=== PATIENT | male | born 1955 | race Caucasian/White ===

== ENCOUNTER 2017-09-02 16:08 | Emergency (ER) | payer MEDICAID ==
[2017-09-02] MEDS ORDERED: Albuterol/Ipratropium 3.0-0.5 MG/3 ML Neb Soln NEB ONE ×2 (16:28→18:44)
[2017-09-02 17:06] LABS: CHLORIDE,CL 95 mmol/L (101-111); SODIUM,NA 132 mmol/L (135-145)
--- NOTE | 2017-09-02 17:46 | CR ---
Clinical history: 61-year-old male with chest pain who was evaluated 26 August 2017 for "shortness of breath". Interpretation: No acute new cardiopulmonary abnormality and..... no change except for technique on today's upright AP portable chest film (compared to PA, lateral fi lms of 26 August 2017). Hypertrophic arthritic changes dorsal spine. Mild ectasia dorsal aorta. Normal cardiac silhouette without cephalization of vascular flow, signs of alveolar edema or dependen t pleural effusion. No new lung mass, hilar lymphadenopathy or focal lobar pneumonia. No atelectasis/collapse. No pneumothorax or free subdiaphragmatic air.
--- NOTE | 2017-09-02 18:08 | EDM.PDOC ---
Scribed by Suzy Red 09/02/17 1809 for Amara Ozuna NP <Amara Ozuna - Last Filed: 09/02/17 18:08> ED HPI GENERAL MEDICAL PROBLEM - General Chief Complaint: Chest Pain Stated Complaint: [id number] CHEST SOB NOT GETTING ANY BETTER Time Seen by Provider: 09/02/17 17:00 Source of Information: Reports: Patient, RN, RN Notes Reviewed History Limitations: Reports: No Limitations - History of Present Illness INITIAL COMMENTS - FREE TEXT/NARRATIVE: Patient presents to ER with complaint of cough, shortness of breath, and chest pain. This began 10 days or longer ago. He was seen at [facility] about 1 week ago. Steroids and antibiotics were given. He states he is not sure if he finished meds. He has a harsh cough. He is sleepy and tired. He has chest pains and shortness of breath. He has no fever, chills, nausea, vomiting or diarrhea. Onset: Gradual Duration: Getting Worse Location: Reports: Chest Quality: Reports: Ache Severity: Severe Improves with: Reports: None Worsens with: Reports: None Associated Symptoms: Reports: No Other Symptoms Chest Pain Score (Numeric/FACES): 6 - Related Data Allergies Allergy/AdvReac Type Severity Reaction Status Date / Time Vragmkn-Sjv-Bbc Reductase Allergy Burning Verified 07/04/16 10:04 Inhibitor Home Meds: Home Meds Valsartan/Hydrochlorothiazide [Valsartan-Hctz 160-25 mg Tab] 1 each PO DAILY [History] DULoxetine [Cymbalta] 60 mg PO DAILY 02/18/16 [History] Gabapentin [Neurontin] 600 mg PO TID 02/18/16 [History] LORazepam 0.5 mg PO DAILY 06/15/16 [History] Past Medical History HEENT History: Reports: Impaired Vision, Sinusitis Cardiovascular History: Reports: High Cholesterol, Hypertension Respiratory History: Reports: Sleep Apnea Gastrointestinal History: Reports: None Genitourinary History: Reports: Renal Disease Musculoskeletal History: Reports: Fracture Neurological History: Reports: None Psychiatric History: Reports: Anxiety, Depression Endocrine/Metabolic History: Reports: Obesity/BMI 30+ Hematologic History: Reports: None Immunologic History: Reports: None Oncologic (Cancer) History: Reports: None Dermatologic History: Reports: None - Infectious Disease History Infectious Disease History: Reports: None - Past Surgical History GI Surgical History: Reports: Hernia Repair/Other Social & Family History - Family History Family Medical History: Noncontributory - Tobacco Use Smoking Status *Q: Former Smoker Years of Tobacco use: 30 Packs/Tins Daily: 1 Used Tobacco, but Quit: Yes Month/Year Tobacco Last Used: June Second Hand Smoke Exposure: No - Caffeine Use Caffeine Use: Reports: Coffee - Recreational Drug Use Recreational Drug Use: No - Living Situation & Occupation Living situation: Reports: Alone Occupation: Employed ED ROS GENERAL - Review of Systems Review Of Systems: ROS reveals no pertinent complaints other than HPI. ED EXAM, GENERAL - Physical Exam Exam: See Below Exam Limited By: No Limitations Eye Exam: Bilateral Eye: Normal Inspection Ears: Normal External Exam, Normal Canal, Hearing Grossly Normal, Normal TMs Nose: Normal Inspection, Normal Mucosa, No Blood Throat/Mouth: Normal Inspection, Normal Lips, Normal Teeth, Normal Gums, Normal Oropharynx, Normal Voice, No Airway Compromise Head: Atraumatic, Normocephalic Neck: Normal Inspection, Supple, Non-Tender, Full Range of Motion Respiratory/Chest: Wheezing (and rales throughout) Cardiovascular: Normal Peripheral Pulses, Regular Rate, Rhythm, No Edema, No Gallop, No JVD, No Murmur, No Rub GI/Abdominal: Other (large) (Male) Exam: Deferred Rectal (Males) Exam: Deferred Back Exam: Normal Inspection, Full Range of Motion, NT Extremities: Normal Inspection, Normal Range of Motion, Non-Tender, Normal Capillary Refill, No Pedal Edema Neurological: Alert, Oriented, CN II-XII Intact, Normal Cognition, Normal Gait, Normal Reflexes, No Motor/Sensory Deficits Psychiatric: Depressed Mood Skin Exam: Warm, Dry, Intact, Normal Color, No Rash Lymphatic: No Adenopathy EKG INTERPRETATION EKG Date: 09/02/17 Time: 16:30 Rhythm: Other (sinusrhythm) Rate (Beats/Min): 84 [place]: Normal P-Wave: Present QRS: Normal ST-T: Normal QT: Normal Course - Vital Signs Last Recorded V/S: Last Vital Signs Temp 36.8 C 09/02/17 18:16 Pulse 87 09/02/17 18:16 Resp 20 09/02/17 18:16 BP 120/70 09/02/17 18:16 Pulse Ox 92 L 09/02/17 18:16 - Orders/Labs/Meds Orders: Active Orders 24 hr Category Date Time Status EKG Documentation Completion [RC] STAT Care 09/02/17 16:28 Active RT Aerosol Therapy [RC] ASDIRECTED Care 09/02/17 16:29 Active RT Aerosol Therapy [RC] ASDIRECTED Care 09/02/17 18:44 Ordered CULTURE BLOOD [BC] Stat Lab 09/02/17 17:22 Received CULTURE BLOOD [BC] Stat Lab 09/02/17 17:26 Received UA W/MICROSCOPIC [URIN] Stat Lab 09/02/17 18:03 Ordered Blood Culture x2 Reflex Set [OM.PC] Stat Oth 09/02/17 17:07 Ordered Labs: Laboratory Tests 09/02/17 09/02/17 09/02/17 Range/Units 16:40 16:40 16:40 WBC 14.5 H (5.0-10.0) 10^3/uL RBC 5.31 (4.6-6.2) 10^6/uL Hgb 16.7 (14.0-18.0) g/dL Hct 46.7 (40.0-54.0) % MCV 87.9 (80-100) fL MCH 31.5 (27.0-34.0) pg MCHC 35.8 H (33.0-35.0) g/dL Plt Count 270 (150-450) 10^3/uL Neut % (Auto) 54.7 (42.2-75.2) % Lymph % (Auto) 36.4 (20.5-50.1) % [place] % (Auto) 8.3 H (2-8) % Eos % (Auto) 0.3 L (1.0-3.0) % Baso % (Auto) 0.3 (0.0-1.0) % Add Manual Diff Yes Neutrophils % (Manual) 49 (42-75) % Band Neutrophils % 5 % Lymphocytes % (Manual) 38 (20-50) % Atypical Lymphs % 2 % Monocytes % (Manual) 5 (2-8) % Eosinophils % (Manual) 1 (1-3) % D-Dimer, Quantitative 185 (0-400) ng/mL Sodium 132 L (135-145) mmol/L Potassium 3.2 L (3.6-5.0) mmol/L Chloride 95 L (101-111) mmol/L Carbon Dioxide 26.0 (21.0-31.0) mmol/L Anion Gap 14.2 BUN 20 H (7-18) mg/dL Creatinine 1.0 (0.6-1.3) mg/dL Est Cr Clr Drug Dosing 65.77 mL/min Estimated GFR (MDRD) > 60 BUN/Creatinine Ratio 20.00 Glucose 112 H (74-105) mg/dL Lactic Acid (0.5-2.2) mmol/L Calcium 8.5 (8.4-10.2) mg/dl Total Bilirubin 0.7 (0.2-1.0) mg/dL AST 40 (10-42) IU/L ALT 49 (10-60) IU/L Alkaline Phosphatase 50 (42-121) IU/L Total Protein 8.0 (6.7-8.2) g/dl Albumin 3.8 (3.2-5.5) g/dl Globulin 4.2 Albumin/Globulin Ratio 0.90 Urine Color (YELLOW) Urine Appearance (CLEAR) Urine pH (5.0-9.0) Ur Specific [place] (1.005-1.030) Urine Protein (NEGATIVE) Urine Glucose (UA) (NEGATIVE) Urine Ketones (NEGATIVE) Urine Occult Blood (NEGATIVE) Urine Nitrite (NEGATIVE) Urine Bilirubin (NEGATIVE) Urine Urobilinogen (0.2-1.0) mg/dL Ur Leukocyte Esterase (NEGATIVE) Urine RBC /HPF Urine WBC (0-5/HPF) /HPF Ur Epithelial Cells /HPF Urine Bacteria (0-FEW/HPF) /HPF Urine Mucus /LPF 09/02/17 09/02/17 Range/Units 17:22 18:03 WBC (5.0-10.0) 10^3/uL RBC (4.6-6.2) 10^6/uL Hgb (14.0-18.0) g/dL Hct (40.0-54.0) % MCV (80-100) fL MCH (27.0-34.0) pg MCHC (33.0-35.0) g/dL Plt Count (150-450) 10^3/uL Neut % (Auto) (42.2-75.2) % Lymph % (Auto) (20.5-50.1) % [place] % (Auto) (2-8) % Eos % (Auto) (1.0-3.0) % Baso % (Auto) (0.0-1.0) % Add Manual Diff Neutrophils % (Manual) (42-75) % Band Neutrophils % % Lymphocytes % (Manual) (20-50) % Atypical Lymphs % % Monocytes % (Manual) (2-8) % Eosinophils % (Manual) (1-3) % D-Dimer, Quantitative (0-400) ng/mL Sodium (135-145) mmol/L Potassium (3.6-5.0) mmol/L Chloride (101-111) mmol/L Carbon Dioxide (21.0-31.0) mmol/L Anion Gap BUN (7-18) mg/dL Creatinine (0.6-1.3) mg/dL Est Cr Clr Drug Dosing mL/min Estimated GFR (MDRD) BUN/Creatinine Ratio Glucose (74-105) mg/dL Lactic Acid 1.6 (0.5-2.2) mmol/L Calcium (8.4-10.2) mg/dl Total Bilirubin (0.2-1.0) mg/dL AST (10-42) IU/L ALT (10-60) IU/L Alkaline Phosphatase (42-121) IU/L Total Protein (6.7-8.2) g/dl Albumin (3.2-5.5) g/dl Globulin Albumin/Globulin Ratio Urine Color Yellow (YELLOW) Urine Appearance Clear (CLEAR) Urine pH 5.5 (5.0-9.0) Ur Specific [place] 1.020 (1.005-1.030) Urine Protein Trace H (NEGATIVE) Urine Glucose (UA) Negative (NEGATIVE) Urine Ketones Negative (NEGATIVE) Urine Occult Blood Negative (NEGATIVE) Urine Nitrite Negative (NEGATIVE) Urine Bilirubin Negative (NEGATIVE) Urine Urobilinogen 0.2 (0.2-1.0) mg/dL Ur Leukocyte Esterase Trace H (NEGATIVE) Urine RBC 0-5 /HPF Urine WBC 5-10 H (0-5/HPF) /HPF Ur Epithelial Cells Few /HPF Urine Bacteria Few (0-FEW/HPF) /HPF Urine Mucus Moderate H /LPF Influenza: Negative. Meds: Medications Discontinued Medications Generic Name Dose Route Start Last Admin Trade Name Freq PRN Reason Stop Dose Admin Albuterol/Ipratropium 3 ml 04/02/18 16:28 09/02/17 16:37 Duoneb 3.0-0.5 Mg/3 Ml NEB 09/02/17 16:29 3 ml ONETIME ONE Administration Albuterol/Ipratropium 3 ml 09/02/17 18:44 Duoneb 3.0-0.5 Mg/3 Ml NEB 09/02/17 18:45 ONETIME ONE Guaifenesin/Codeine Phosphate 5 ml 09/02/17 18:40 Robitussin Ac PO 09/02/17 18:41 ONETIME ONE Levofloxacin 500 mg 09/02/17 18:40 Levaquin PO 09/02/17 18:41 ONETIME ONE Methylprednisolone Sodium Succinate 125 mg 09/02/17 18:40 Solu-Medrol IM 09/02/17 18:41 ONETIME ONE - Radiology Interpretation Free Text/Narrative:: Chest x-ray: No acute changes. See rad report. Departure - Departure Disposition: Home, Self-Care 01 Clinical Impression: Bronchitis, COPD exacerbation - Discharge Information Instructions: Acute Bronchitis, Adult, [id number]-[id number], Chronic Obstructive Pulmonary Disease, [id number] Forms: ED Department Discharge Care Plan Goals: The patient was advised of the examination, lab and x-ray results during the visit. The patient was given an injection of SoluMedrol (125 mg), an oral dose of Levaquin (500 mg) and an oral dose of Robitussin AC while in the ED. The patient was discharged with a script for Levaquin (500 mg) to take 1 by mouth daily for 7 days, Prednisone (20 mg) #10 to take 2 by mouth daily for 5 days and Robitussin AC #100 mL to take 5 mL by mouth every 6 hours as needed for cough. The patient should follow-up with his primary care provider by the end of the week for continued evaluation. If the patient has any additional symptoms or concerns, the patient should either return to the emergency department or follow-up with his primary care facility. - My Orders Last 24 Hours: My Active Orders 09/02/17 18:44 RT Aerosol Therapy [RC] ASDIRECTED - Assessment/Plan Last 24 Hours: My Active Orders 09/02/17 18:44 RT Aerosol Therapy [RC] ASDIRECTED <Gary Coyle - Last Filed: 09/02/17 19:00> Course - Re-Assessments/Exams Free Text/Narrative Re-Assessment/Exam: 09/02/17 18:48 Discussed the examination, lab and x-ray results with the patient. The patient would prefer to attempt home treatment vs. admission to the hospital. Departure - Departure Time of Disposition: 18:49 Condition: Fair I have read and agree with the documentation that has been completed regarding this visit. By signing this record, I attest that the documentation was completed in my physical presence and is an accurate record of the encounter.
[2017-09-02] MEDS ORDERED: Codeine/guaiFENesin 100-10 MG/5 ML Syrup 5 ML Cup PO ONE (18:40)
[2017-09-02] MEDS ORDERED: Levofloxacin 500 MG Tab PO ONE (18:40)
[2017-09-02] MEDS ORDERED: methylPREDNISolone Sodium Succinate 125 MG/2 ML SDV IM ONE (18:40)
[2017-09-02 19:31] VITALS: BP 121/84
--- NOTE | 2017-09-04 14:05 | EKG ---
09/02/2017- AKHIL HENSON - FINDINGS: EKG, per my reading, shows sinus rhythm at the rate of 84. [facility] /[id number]
== END 2017-09-02 19:21 | disposition home or self-care (01) ==
LOC: DL.ED 16:08
DX: J44.1 Chronic obstructive pulmonary disease with (acute) exacerbation (principal); E78.00 Pure hypercholesterolemia, unspecified; I10 Essential (primary) hypertension; Z88.8 Allergy status to other drugs, medicaments and biological substances; Z79.899 Other long term (current) drug therapy; Z87.891 Personal history of nicotine dependence
CPT/HCPCS: 36415; 71045; 80053; 81001; 83605; 85025; 85379; 87040; 87804; 93005; 94640; 96372; 99284; A9270; J2930

== ENCOUNTER 2019-06-15 10:55 | Emergency (ER) | payer MEDICARE, MEDICAID ==
[2019-06-15 10:10] VITALS: BP 142/83; PULSE 77
--- NOTE | 2019-06-15 10:55 | EDM.PDOC ---
ED HPI GENERAL MEDICAL PROBLEM - General Chief Complaint: Back Pain or Injury Stated Complaint: BACK PAIN Time Seen by Provider: 06/15/19 10:30 Source of Information: Reports: Patient History Limitations: Reports: No Limitations - History of Present Illness INITIAL COMMENTS - FREE TEXT/NARRATIVE: This 63 yo male patient reports to the ED with lower back and right hip pain. The patient reports he slipped last Saturday and had a near fall. The patient reports increased pain in his lower back and right hip since that time. The patient reports his symptoms have been getting worse throughout the weekend. The patient reports he has had chronic pain in that area and is supposed to be on Gabapentin and Oxycodone for similar symptoms, but is currently out of medications. Onset Date: 06/12/19 Duration: Constant, Getting Worse Location: Reports: Back (low back), Lower Extremity, Right Quality: Reports: Ache, Sharp, Stabbing Severity: Severe Improves with: Reports: None Worsens with: Reports: None Context: Reports: Other Associated Symptoms: Reports: No Other Symptoms Left Hip Pain Score (Numeric/FACES): 10 - Related Data Allergies Allergy/AdvReac Type Severity Reaction Status Date / Time Ozaovkn-Pfb-Jmw Reductase Allergy Burning Verified 06/21/18 19:56 Inhibitor Home Meds: Home Meds Valsartan/Hydrochlorothiazide [Valsartan-Hctz 160-25 mg Tab] 1 each PO DAILY [History] DULoxetine [Cymbalta] 60 mg PO DAILY 02/18/16 [History] Gabapentin [Neurontin] 600 mg PO TID 02/18/16 [History] LORazepam 0.5 mg PO DAILY 06/15/16 [History] Past Medical History HEENT History: Reports: Impaired Vision, Sinusitis Cardiovascular History: Reports: CAD, High Cholesterol, Hypertension, [place] Respiratory History: Reports: COPD, Sleep Apnea Gastrointestinal History: Reports: None Genitourinary History: Reports: Renal Disease Musculoskeletal History: Reports: Fracture Other Musculoskeletal History: LEFT lower arm; RIGHT thumb Neurological History: Reports: Other (See Below) Other Neuro History: neuropathy Psychiatric History: Reports: Anxiety, Depression Endocrine/Metabolic History: Reports: Obesity/BMI 30+ Hematologic History: Reports: None Immunologic History: Reports: None Oncologic (Cancer) History: Reports: None Dermatologic History: Reports: None - Infectious Disease History Infectious Disease History: Reports: None - Past Surgical History Head Surgeries/Procedures: Reports: None HEENT Surgical History: Reports: None Cardiovascular Surgical History: Reports: Other (See Below) Other Cardiovascular Surgeries/Procedures: Triple Bypass in March 24, 2018 GI Surgical History: Reports: Hernia Repair/Other Endocrine Surgical History: Reports: None Neurological Surgical History: Reports: None Musculoskeletal Surgical History: Reports: None Social & Family History - Family History Family Medical History: Noncontributory - Tobacco Use Smoking Status *Q: Former Smoker Used Tobacco, but Quit: Yes Month/Year Tobacco Last Used: 02/2018 - Caffeine Use Caffeine Use: Reports: Coffee - Recreational Drug Use Recreational Drug Use: No - Living Situation & Occupation Living situation: Reports: Alone Occupation: Employed ED ROS GENERAL - Review of Systems Review Of Systems: Comprehensive ROS is negative, except as noted in HPI. ED EXAM, GENERAL - Physical Exam Exam: See Below Exam Limited By: No Limitations General Appearance: Alert, WD/WN, Moderate Distress, Obese Eye Exam: Bilateral Eye: EOMI, Normal Inspection, PERRL Ears: Normal External Exam, Normal Canal, Hearing Grossly Normal, Normal TMs Nose: Normal Inspection, Normal Mucosa, No Blood Throat/Mouth: Normal Inspection, Normal Lips, Normal Teeth, Normal Gums, Normal Oropharynx, Normal Voice, No Airway Compromise Head: Atraumatic, Normocephalic Neck: Normal Inspection, Supple, Non-Tender, Full Range of Motion Respiratory/Chest: No Respiratory Distress, Lungs Clear, Normal Breath Sounds, No Accessory Muscle Use, Chest Non-Tender Cardiovascular: Normal Peripheral Pulses, Regular Rate, Rhythm, No Edema, No Gallop, No JVD, No Murmur, No Rub GI/Abdominal: Normal Bowel Sounds, Soft, Non-Tender, No Organomegaly, No Distention, No Abnormal Bruit, No Mass, Other (obese) (Male) Exam: Deferred Rectal (Males) Exam: Deferred Back Exam: Paraspinal Tenderness (lower back ), Vertebral Tenderness (lower back ) Extremities: No Pedal Edema, Normal Capillary Refill, Leg Pain (right hip) Neurological: Alert, Oriented, CN II-XII Intact, Normal Cognition, Normal Gait, Normal Reflexes, No Motor/Sensory Deficits Psychiatric: Normal Affect, Normal Mood Skin Exam: Warm, Dry, Intact, Normal Color, No Rash Lymphatic: No Adenopathy Course - Vital Signs Last Recorded V/S: Last Vital Signs Temp 36.3 C 06/15/19 10:05 Pulse 77 06/15/19 10:05 Resp 20 06/15/19 10:05 BP 142/83 H 06/15/19 10:05 Pulse Ox 95 06/15/19 10:05 - Orders/Labs/Meds Meds: Medications Discontinued Medications Generic Name Dose Route Start Last Admin Trade Name Namita PRN Reason Stop Dose Admin Ketorolac Tromethamine 60 mg 06/15/19 11:38 Toradol IM 06/15/19 11:39 ONETIME ONE Departure - Departure Time of Disposition: 11:42 Disposition: Home, Self-Care 01 Condition: Fair Clinical Impression: Acute exacerbation of chronic low back pain, Right hip pain - Discharge Information *PRESCRIPTION DRUG MONITORING PROGRAM REVIEWED*: Not Applicable *COPY OF PRESCRIPTION DRUG MONITORING REPORT IN PATIENT JAVIER: Not Applicable Instructions: Chronic Back Pain, [id number] Forms: ED Department Discharge Care Plan Goals: The patient was advised of the examination results during the visit. The patient was given an injection of Toradol (60 mg) while in the ED. The patient was discharged with scripts for Toradol (10 mg) #20 to take 1 by mouth every 6 hours and Flexeril (5 mg) #20 to take 1 by mouth at bedtime as needed. If the patient has any additional symptoms or concerns, the patient should either return to the emergency department or visit his primary care facility. Sepsis Event Note - Evaluation Sepsis Screening Result: No Definite Risk - Focused Exam Vital Signs: Vital Signs Temp Pulse Resp BP Pulse Ox 06/15/19 10:05 36.3 C 77 20 142/83 H 95 Date Exam was Performed: 06/15/19 Time Exam was Performed: 11:42
--- NOTE | 2019-06-15 11:15 | CR ---
EXAMINATION: Lumbar Spine 2 views SEX: Male AGE: 63 years CLINICAL HISTORY: 63-year-old male complaining of low back and right hip pain. INTERPRETATION: 1. Mild intervertebral disc space narrowing with endplate sclerosis and hypertrophic marginal spondylosis L3-for L4-5 levels suggesting chronic disc degeneration. 2. No pathologic skeletal lesion, lumbar fracture or spondylolisthesis. 3. Symmetric spacing normal-appearing SI and hip joints. No arthritic degenerative changes.
--- NOTE | 2019-06-15 11:18 | CR ---
EXAMINATION: AP pelvis/hips and AP/frog lateral views of the right hip SEX: Male AGE: 63 years CLINICAL HISTORY: 63-year-old male complaining of low back and right hip pain. Multilevel disc degeneration and arthritis of the lumbar spine (spondylosis). Radicular pain? INTERPRETATION: 1. Good bone mineral density for age and gender. 2. Symmetric spacing normal-appearing SI and hip joints. No reactive sclerosis or hypertrophic spur formation. 3. No pathologic skeletal lesion, pelvic or either hip fracture/dislocation. 4. Surgical clips soft tissues of the right thigh, medially. No other foreign bodies. 5. Arteriovascular calcifications in the groin. CONCLUSION: Negative exam.
[2019-06-15] MEDS ORDERED: Ketorolac 30 MG/ML SDV IM ONE (11:38)
== END 2019-06-15 12:18 | disposition home or self-care (01) ==
LOC: DL.ED 10:55
DX: M54.5 Low back pain (principal); M25.551 Pain in right hip; G89.29 Other chronic pain; I10 Essential (primary) hypertension; I25.2 Old myocardial infarction; E78.00 Pure hypercholesterolemia, unspecified; F41.9 Anxiety disorder, unspecified; F32.9 Major depressive disorder, single episode, unspecified; E66.9 Obesity, unspecified; Z68.43 Body mass index [BMI] 50.0-59.9, adult; Z87.891 Personal history of nicotine dependence; Z88.8 Allergy status to other drugs, medicaments and biological substances; Z79.899 Other long term (current) drug therapy
CPT/HCPCS: 72100; 73502; 96372; 99283; J1885

== ENCOUNTER 2023-09-18 14:14 | Emergency (ER) | payer MEDICARE, MEDICAID ==
[2023-09-18 15:59] LABS: EOSINOPHILS PERCENT AUTO 1.6 % (1.0-3.0); HEMATOCRIT 48.7 % (40.0-54.0); HEMOGLOBIN 16.9 g/dL (14.0-18.0); LYMPHOCYTES PERCENT AUTO 18.2 % (20.5-50.1); MEAN CORPUSCULAR HEMOGLOBIN 30.1 pg (27.0-34.0); MEAN CORPUSCULAR HGB CONC 34.7 g/dL (33.0-35.0); MEAN CORPUSCULAR VOLUME 86.7 fL (80-100); MONOCYTES PERCENT AUTO 7.9 % (2-8); NEUTROPHILS PERCENT AUTO 71.3 % (42.2-75.2); PLATELET COUNT,PLT 292 10^3/uL (150-450); RED BLOOD CELL COUNT 5.62 10^6/uL (4.6-6.2)
[2023-09-18 16:32] LABS: A/G RATIO 0.8; ALBUMIN 3.6 g/dL (3.4-5.0); BILIRUBIN TOTAL 0.9 mg/dL (0.2-1.0); BUN/CREATININE RATIO 7.8 (No establ ref range); CALCIUM 8.7 mg/dL (8.5-10.1); CREATININE 1.54 mg/dL (0.70-1.30); EST CRCL DRUG DOSING (CG) 35.92 mL/min; PROTEIN TOTAL,TP 7.9 g/dL (6.4-8.2)
[2023-09-18 17:45] VITALS: PULSE 88
[2023-09-18 18:05] VITALS: BP 168/100
== END 2023-09-18 18:25 | disposition home or self-care (01) ==
LOC: DL.ED 14:14
DX: I48.92 Unspecified atrial flutter (principal); I10 Essential (primary) hypertension; I25.10 Atherosclerotic heart disease of native coronary artery without angina pectoris; I25.2 Old myocardial infarction; J44.9 Chronic obstructive pulmonary disease, unspecified; E66.9 Obesity, unspecified; Z88.8 Allergy status to other drugs, medicaments and biological substances; Z91.048 Other nonmedicinal substance allergy status; Z79.899 Other long term (current) drug therapy; Z87.891 Personal history of nicotine dependence; Z68.43 Body mass index [BMI] 50.0-59.9, adult
CPT/HCPCS: 36415; 80053; 84484; 85025; 93005; 99285

== ENCOUNTER 2024-03-25 15:54 | Emergency (ER) | payer MEDICARE, MEDICAID ==
[2024-03-25] MEDS: Sodium Chloride 0.9% 1,000 ML IV ONE (16:05)
[2024-03-25] MEDS ORDERED: Norepinephrine Bit/D5W Premix 0 ML ONE (16:06)
[2024-03-25] MEDS ORDERED: Sodium Chloride 0.9% 10 ML Syringe FLUSH PRN (16:11)
[2024-03-25 16:18] LABS: BASOPHILS PERCENT AUTO 0.4 % (0.0-1.0); EOSINOPHILS PERCENT AUTO 0.9 % (1.0-3.0); HEMATOCRIT 47.8 % (40.0-54.0); HEMOGLOBIN 16.6 g/dL (14.0-18.0); LYMPHOCYTES PERCENT AUTO 19.2 % (20.5-50.1); MEAN CORPUSCULAR HEMOGLOBIN 30.6 pg (27.0-34.0); MEAN CORPUSCULAR HGB CONC 34.7 g/dL (33.0-35.0); MONOCYTES PERCENT AUTO 8.8 % (2-8); NEUTROPHILS PERCENT AUTO 70.7 % (42.2-75.2); PLATELET COUNT,PLT 248 10^3/uL (150-450); RED BLOOD CELL COUNT 5.43 10^6/uL (4.6-6.2); WHITE BLOOD CELL COUNT,WBC 9.1 10^3/uL (5.0-10.0)
[2024-03-25 16:34] LABS: A/G RATIO 1.1; ALANINE AMINOTRANSFERASE,ALT 25 U/L (16-63); ALBUMIN 3.5 g/dL (3.4-5.0); ALKALINE PHOSPHATASE 78 U/L (46-116); ANION GAP 14.9 mEq/L (7-13); ASPARTATE AMNIOTRANSFERASE,AST 18 U/L (15-37); BLOOD UREA NITROGEN,BUN 19 mg/dL (7-18); BUN/CREATININE RATIO 10.1 (No establ ref range); CALCIUM 8.8 mg/dL (8.5-10.1); CARBON DIOXIDE,CO2 23 mmol/L (21-32); CHLORIDE,CL 104 mmol/L (98-107); CREATININE 1.88 mg/dL (0.70-1.30); GLUCOSE RANDOM 133 mg/dL (70-99); MAGNESIUM 1.8 mg/dL (1.8-2.4); POTASSIUM,K 3.9 mmol/L (3.5-5.1); PROTEIN TOTAL,TP 6.8 g/dL (6.4-8.2); SODIUM,NA 138 mmol/L (136-145)
[2024-03-25 16:35] LABS: C-REACTIVE PROTEIN < 0.50 ng/dL (<=0.50); ESTIMATED GFR 38 mL/min (>=60); LACTIC ACID 1.5 mmol/L (0.4-2.0)
[2024-03-25 17:35] VITALS: BP 114/78; PULSE 62
== END 2024-03-25 18:00 | disposition home or self-care (01) ==
LOC: DL.ED 15:54
DX: E86.0 Dehydration (principal); I10 Essential (primary) hypertension; I25.10 Atherosclerotic heart disease of native coronary artery without angina pectoris; I25.2 Old myocardial infarction; E78.00 Pure hypercholesterolemia, unspecified; J44.9 Chronic obstructive pulmonary disease, unspecified; E66.9 Obesity, unspecified; Z79.899 Other long term (current) drug therapy; Z79.01 Long term (current) use of anticoagulants; Z88.8 Allergy status to other drugs, medicaments and biological substances; Z91.09 Other allergy status, other than to drugs and biological substances; Z68.43 Body mass index [BMI] 50.0-59.9, adult
CPT/HCPCS: 36415; 70450; 80053; 82947; 83605; 83735; 84484; 85025; 86140; 93005; 96360; 99285; J7030

== ENCOUNTER 2024-11-01 08:58 | Emergency (ER) | payer MEDICARE, OTHER, MEDICAID ==
[2024-11-01 09:34] LABS: O2 DELIVERY DEVICE ROOM AIR
[2024-11-01 09:36] LABS: BASE EXCESS VENOUS -0.5 mmol/l ((-2)-(+3)); BICARBONATE,VENOUS 26 mmol/l (19-25); O2 SATURATION VENOUS 85.5 % (60-80); PCO2 VENOUS 49 mmHg (41-51); PH,VENOUS 7.34 (7.31-7.41); PO2 VENOUS 64 mmHg (35-42)
[2024-11-01] MEDS: Albuterol/Ipratropium 3.0-0.5 MG/3 ML Neb Soln NEB ONE (09:51)
[2024-11-01] MEDS: predniSONE 20 MG Tab PO ONE (09:51)
[2024-11-01] MEDS: Albuterol/Ipratropium 3.0-0.5 MG/3 ML Neb Soln ONE (09:52)
[2024-11-01 09:58] LABS: ALBUMIN 3.2 g/dL (3.4-5.0); ANION GAP 11.6 mEq/L (7-13); BILIRUBIN TOTAL 1.1 mg/dL (0.2-1.0); CALCIUM 8.1 mg/dL (8.5-10.1); CREATININE 1.46 mg/dL (0.70-1.30); EST CRCL DRUG DOSING (CG) 38.86 mL/min; MAGNESIUM 1.9 mg/dL (1.8-2.4); POTASSIUM,K 3.6 mmol/L (3.5-5.1); PROTEIN TOTAL,TP 7.1 g/dL (6.4-8.2)
[2024-11-01 09:59] LABS: A/G RATIO 0.82; BASOPHILS PERCENT AUTO 0.4 % (0.0-1.0); EOSINOPHILS PERCENT AUTO 0.5 % (1.0-3.0); HEMATOCRIT 47.8 % (40.0-54.0); HEMOGLOBIN 16.3 g/dL (14.0-18.0); LACTIC ACID 1.4 mmol/L (0.4-2.0); LYMPHOCYTES PERCENT AUTO 10.1 % (20.5-50.1); MEAN CORPUSCULAR HEMOGLOBIN 30.9 pg (27.0-34.0); MEAN CORPUSCULAR HGB CONC 34.1 g/dL (33.0-35.0); MEAN CORPUSCULAR VOLUME 90.7 fL (80-100); MONOCYTES PERCENT AUTO 8.7 % (2-8); NEUTROPHILS PERCENT AUTO 80.3 % (42.2-75.2); PLATELET COUNT,PLT 222 10^3/uL (150-450); RED BLOOD CELL COUNT 5.27 10^6/uL (4.6-6.2); WHITE BLOOD CELL COUNT,WBC 13.9 10^3/uL (5.0-10.0)
[2024-11-01] MEDS: Amoxicillin/Clavulanate K 875-125 MG Tab PO ONE (10:53)
[2024-11-01 11:08] VITALS: BP 160/103; PULSE 91
== END 2024-11-01 11:29 | disposition home or self-care (01) ==
LOC: DL.ED 08:58
DX: J44.1 Chronic obstructive pulmonary disease with (acute) exacerbation (principal); E78.00 Pure hypercholesterolemia, unspecified; I25.10 Atherosclerotic heart disease of native coronary artery without angina pectoris; I10 Essential (primary) hypertension; I25.2 Old myocardial infarction; E66.9 Obesity, unspecified; Z88.8 Allergy status to other drugs, medicaments and biological substances; Z79.899 Other long term (current) drug therapy
CPT/HCPCS: 36415; 71045; 80053; 82803; 83605; 83735; 84484; 85025; 85379; 99284; 99285; A9270; J7512

== ENCOUNTER 2024-11-09 12:39 | Emergency (ER) | payer MEDICARE ==
[2024-11-09] MEDS ORDERED: Lidocaine 5% 700 MG Patch TOP ONE (13:06)
[2024-11-09] MEDS: Ketorolac 30 MG/ML SDV IM ONE (13:16)
[2024-11-09] MEDS: Dexamethasone 4 MG/ML SDV IM ONE (13:18)
[2024-11-09 13:37] VITALS: BP 143/92; PULSE 68
== END 2024-11-09 13:50 | disposition home or self-care (01) ==
LOC: DL.ED 12:39 → EEVIPCON 12:39 → DL.ED 13:50
DX: G89.29 Other chronic pain (principal); M54.6 Pain in thoracic spine; I10 Essential (primary) hypertension; E78.00 Pure hypercholesterolemia, unspecified; I25.10 Atherosclerotic heart disease of native coronary artery without angina pectoris; J44.9 Chronic obstructive pulmonary disease, unspecified; E66.9 Obesity, unspecified; Z79.899 Other long term (current) drug therapy; Z91.048 Other nonmedicinal substance allergy status; Z88.8 Allergy status to other drugs, medicaments and biological substances
CPT/HCPCS: 96372; 99283; A9270-GY; J1100; J1885

== ENCOUNTER 2025-01-07 10:43 | Emergency (ER) | payer MEDICARE ==
[2025-01-07 11:23] LABS: BASOPHILS PERCENT AUTO 0.6 % (0.0-1.0); EOSINOPHILS PERCENT AUTO 2.4 % (1.0-3.0); LYMPHOCYTES PERCENT AUTO 20.5 % (20.5-50.1); MONOCYTES PERCENT AUTO 11.2 % (2-8); NEUTROPHILS PERCENT AUTO 65.3 % (42.2-75.2); PLATELET COUNT,PLT 242 10^3/uL (150-450); RED BLOOD CELL COUNT 5.29 10^6/uL (4.6-6.2); WHITE BLOOD CELL COUNT,WBC 7.0 10^3/uL (5.0-10.0)
[2025-01-07 11:33] LABS: A/G RATIO 0.9; ALANINE AMINOTRANSFERASE,ALT 24.0 U/L (16-63); ASPARTATE AMNIOTRANSFERASE,AST 17.0 U/L (15-37); BILIRUBIN TOTAL 1.8 mg/dL (0.2-1.0); BLOOD UREA NITROGEN,BUN 14.0 mg/dL (7-18); CARBON DIOXIDE,CO2 29.0 mmol/L (21-32); CHLORIDE,CL 100.0 mmol/L (98-107); CREATININE 1.55 mg/dL (0.70-1.30); EST CRCL DRUG DOSING (CG) 36.6 mL/min; GLUCOSE RANDOM 153.0 mg/dL (70-99); POTASSIUM,K 3.7 mmol/L (3.5-5.1); PROTEIN TOTAL,TP 7.4 g/dL (6.4-8.2); SODIUM,NA 138.0 mmol/L (136-145)
[2025-01-07 11:36] LABS: ESTIMATED GFR 48.0 mL/min (>=60)
[2025-01-07 11:47] LABS: B-TYPE NATRIURETIC PEPTIDE,BNP 551.0 pg/ml (0-100)
[2025-01-07] MEDS: Bumetanide 1 MG/4 ML MDV IVPUSH ONE (12:07)
[2025-01-07 14:47] VITALS: BP 157/93; PULSE 74
== END 2025-01-07 14:16 | disposition home or self-care (01) ==
LOC: DL.ED 10:43
DX: J44.1 Chronic obstructive pulmonary disease with (acute) exacerbation (principal); I10 Essential (primary) hypertension; E78.00 Pure hypercholesterolemia, unspecified; E66.9 Obesity, unspecified; Z88.8 Allergy status to other drugs, medicaments and biological substances; Z91.09 Other allergy status, other than to drugs and biological substances; Z79.899 Other long term (current) drug therapy
CPT/HCPCS: 36415; 71045; 80053; 83880; 85025; 93005; 93010; 94640; 96374; 99284; A9270; J3490

== ENCOUNTER 2025-01-20 17:06 | Emergency (ER) | payer MEDICARE, MEDICAID ==
[2025-01-20 17:44] VITALS: BP 193/133; PULSE 85
== END 2025-01-20 17:50 | disposition home or self-care (01) ==
LOC: DL.ED 17:06
DX: J18.9 Pneumonia, unspecified organism (principal); I25.10 Atherosclerotic heart disease of native coronary artery without angina pectoris; E78.00 Pure hypercholesterolemia, unspecified; I10 Essential (primary) hypertension; I25.2 Old myocardial infarction; J44.9 Chronic obstructive pulmonary disease, unspecified; Z88.8 Allergy status to other drugs, medicaments and biological substances; Z91.09 Other allergy status, other than to drugs and biological substances; Z79.899 Other long term (current) drug therapy; Z79.51 Long term (current) use of inhaled steroids; Z79.01 Long term (current) use of anticoagulants
CPT/HCPCS: 99283; A9270; 99284